=== PATIENT | female | born 1965 | race Caucasian/White ===

== ENCOUNTER 2018-12-06 11:50 | Emergency (ER) | payer MEDICAID ==
[~2018-12-06] VITALS: Ht 157.4 cm; Wt 95.3 kg
[~2018-12-06 11:50] MED LIST: LOMOTIL 0.025 M1 TA1 PO; ZOFRAN ODT4 MG SL
[2018-12-06 13:10] LABS: BASO % 0.3 % (0.0-1.0); EOS # 0.2 10*3/uL (0.0-0.4); EOS % 2.8 % (1.0-4.0); HEMOGLOBIN 15.5 g/dl (12.0-16.0); LYMPH # 2.1 10*3/uL (1.3-4.4); LYMPH % 34.1 % (27.0-41.0); MEAN CELL VOLUME 86.2 fl (81.0-99.0); MEAN CORPUSCULAR HGB 29.7 pg (27.0-31.0); MEAN CORPUSCULAR HGB CONC 34.4 g/dl (33.0-37.0); MONO # 0.6 10*3/uL (0.1-1.0); MONO % 10.3 % (3.0-9.0); NEUT # 3.1 10*3/uL (2.3-7.9); NEUT % 52.2 % (47.0-73.0); PLATELET COUNT AUTOMATED 149 10*3/uL (130-400); RED BLOOD COUNT 5.22 10*6/uL (4.10-5.10); RED CELL DISTRI WIDTH 13.6 % (0-14.5)
[2018-12-06 13:26] LABS: ALBUMIN 3.8 gm/dl (3.1-4.5); ALKALINE PHOSPHATASE 107 U/L (45-117); BUN 10 mg/dl (7-24); CHLORIDE 103 mmol/L (98-107); CREATININE 0.87 mg/dL (0.55-1.02); POTASSIUM 3.1 mmol/L (3.5-5.1); SGOT/AST 30 IU/L (3-35); SGPT/ALT 44 U/L (12-78); SODIUM 139 mmol/L (136-145)
[2018-12-06] MEDS ORDERED: TAMIFLU 75MG CA75 MG PO (14:34)
== END 2018-12-06 14:49 | disposition home or self-care (01) ==
LOC: ED 11:50
PROVIDERS: Student in an Organized Health Care Education/Training Program
DX: J10.1 Influenza due to other identified influenza virus with other respiratory manifestations (principal); R19.7 Diarrhea, unspecified; H92.09 Otalgia, unspecified ear; I10 Essential (primary) hypertension